=== PATIENT | male | born 1960 | race Caucasian/White ===

== ENCOUNTER 2018-08-28 08:53 | Day surgery (SDC) | payer MEDICARE ==
[~2018-08-28 08:53] MED LIST: Lactated Ringers 1,000 ML IV ONE; Lactated Ringers 1,000 ML IV SCH
[2018-08-28] MEDS ORDERED: Ketamine HCl 50 MG/ML IV ONE (08:54)
[2018-08-28] MEDS ORDERED: DIPRIVAN 200 MG/20 ML IV ONE (08:54)
--- NOTE | 2018-08-28 10:06 | HP ---
DATE OF SURGERY: 08/28/2018 HISTORY OF PRESENT ILLNESS: The patient is a 57 year-old with diarrhea three or four stools a day, some sharp right abdominal pain. He had a high ejection fraction of 85%. Family history of sister with history of colitis. With change in bowel habits and right upper quadrant pain, gallbladder ultrasound negative according to the patient, is in need of upper endoscopy to evaluate for gastritis, duodenitis, peptic ulcer disease as well as colonoscopy as he has a change in bowel habits. PAST MEDICAL HISTORY: Chronic obstructive pulmonary disease. Coronary stent in the past. PAST SURGICAL HISTORY: Coronary stents in the past. MEDICATIONS: Allopurinol, Albuterol, Cartia, bupropion, carvedilol, clopidogrel, famotidine, Invokana, isosorbide mononitrate, Lyrica, Nitro-Stat, Pyridium, Ventolin HFA, rosuvastatin, Symbicort. ALLERGIES: NIACIN. FAMILY HISTORY: Heart disease, cancer, diabetes, fibromyalgia, chronic obstructive pulmonary disease, sleep apnea. SOCIAL HISTORY: No smoking or alcohol abuse. REVIEW OF SYSTEMS: Twelve systems reviewed. Other systems negative or noncontributory as above and per preadmission questionnaire. PHYSICAL EXAMINATION: GENERAL: No acute distress. HEENT: Sclerae nonicteric. NECK: No JVD. CHEST: Equal excursion, nonlabored breathing. CVS: Regular rate and rhythm. ABDOMEN: Soft, some mild tenderness right upper quadrant. No peritoneal signs. EXTREMITIES: No significant edema. NEURO: Alert, oriented, moving extremities symmetrically. No gross motor deficits noted. IMPRESSION: History of some right upper quadrant pain. He is in need upper endoscopy to evaluate for gastritis, peptic ulcer disease, celiac disease, duodenitis or other etiology given the change in bowel habits. Also he is in need of colonoscopy to evaluate for colitis or other etiology, will proceed with EGD and colonoscopy as an outpatient. General risk of bleeding or infection, risk of bowel injury or perforation possibly requiring open procedure, risk of missed or nondiagnosis or inability to diagnose the etiology of his symptoms possibly requiring further work up and/or further studies or procedures. He understands and agrees to the planned procedure, will proceed with EGD and colonoscopy as an outpatient.
[2018-08-28 13:14] VITALS: O2SAT 99
[2018-08-28 13:16] VITALS: BP 110/74; PULSE 61
--- NOTE | 2018-08-28 14:57 | OP ---
SURGERY DATE/TIME: 08/28/2018 1100 PREOPERATIVE DIAGNOSES: 1) History of upper abdominal pain. 2) History of change in bowel movements, need for upper and lower endoscopy. POSTOPERATIVE DIAGNOSES: 1) Esophagitis, gastritis. 2) Ascending colon polyp. 3) Small raised lesion sigmoid colon. 4) Small internal and external hemorrhoids. 5) Fair bowel prep. PROCEDURES: 1) EGD with cold biopsy of the small bowel to evaluate for celiac sprue. 2) Cold biopsy of the antrum to evaluate for Helicobacter pylori. 3) Cold biopsy distal esophagus area of inflammation as well as more proximal distal esophagus to evaluate esophagitis. 4) Colonoscopy to terminal ileum. 5) Retrograde ileoscopy. 6) Random cold biopsies of the ileum to evaluate for microscopic ileitis. 7) Random cold biopsies colon to evaluate for microscopic colitis. 8) Hot snare polypectomy ascending colon polyp. 9) Hot biopsy removal small raised lesion versus hyperplastic lesion sigmoid colon. SURGEON: Dr. Timothy Timmons. ANESTHESIA: MAC. ESTIMATED BLOOD LOSS: Minimal. INDICATIONS: As noted above. Risks and benefits explained in detail and not limited to and consent obtained. DESCRIPTION OF PROCEDURE AND FINDINGS: The patient is taken to the operating room. MAC anesthesia introduced. After official time out and no disagreement with planned procedure, a bite block positioned. Video gastroscope easily passed down the esophagus through the patent pylorus to the junction of the second and third portion of the duodenum. Duodenum and duodenal bulb were grossly unremarkable. No signs of any obvious ulcers or inflammation but given his symptom complaint cold biopsy taken to evaluate for celiac sprue. Good hemostasis noted. The scope pulled back into the stomach and had some minimal to mild gastritis. Cold biopsy taken to evaluate for Helicobacter pylori. On retroflex the gastroesophageal junction snug against the stomach. There were no signs of any obvious ulcers, masses, polyps or any other mucosal lesions. The scope was straightened and pulled back. Gastroesophageal junction noted about 38 cm. There were some signs of some distal esophagitis, superficial erosions. Cold biopsy taken for further evaluation. There is no gross evidence of Thurston's. He did have some older looked like more healed in the area of erosion a little more proximal in the distal esophagus and these removed with cold biopsy as well for pathology. The remainder of the esophagus grossly unremarkable. No signs of any masses or other mucosal lesions other than the erosive esophagitis. The scope is withdrawn. The patient tolerated the procedure well. Attention turned to colonoscopy. Digital rectal exam did not reveal any rectal masses. He did have some small internal and external hemorrhoids. Video colonoscope inserted and passed up the tortuous sigmoid, descending, transverse and ascending colon. The scope was able to be passed around to the cecum and up through the terminal ileum. Retrograde ileoscopy performed which was grossly unremarkable but given his change in bowel habits and abdominal complaints felt he warranted biopsy for microscopic ileitis. Cold biopsy taken to this. The scope is then pulled back. Prep overall was fair. There were some areas of liquidy and semisolid stool limiting exam slightly for very tiny lesions but this was suction irrigated as clear as possible. The scope is slowly and carefully withdrawn. Some random cold biopsies obtained in the colon to evaluate for microscopic colitis. There was a small polyp in the distal ascending colon near the hepatic flexure about 3 to 4 mm in size removed with hot snare polypectomy with brief bursts of cautery. Good hemostasis was noted. The scope slowly and carefully withdrawn after some random biopsies had been taken to evaluate for microscopic colitis. There was no gross macroscopic colitis. There were no signs of any other large polyps, masses or obstructing lesions. He had a few diverticula. He had some small raised lesions in sigmoid colon versus hyperplastic lesion removed with hot biopsy forceps with brief bursts of cautery. Good hemostasis was noted. Otherwise he had some small internal and external hemorrhoids. The scope is withdrawn. The patient tolerated the procedure well. There were no immediate complications. Findings discussed with the family out in the waiting area. I will see him back in the office in a week or two to go over the results. If polyps are all benign he will likely need follow up colonoscopy in three years given the adenomatous appearing ascending colon polyp.
== END 2018-08-28 12:35 | disposition home or self-care (01) ==
LOC: SDC 08:53
PROVIDERS: ATTEND Surgery
DX: K20.9 Esophagitis, unspecified (principal); R19.7 Diarrhea, unspecified; K64.8 Other hemorrhoids; K63.5 Polyp of colon; D12.2 Benign neoplasm of ascending colon; K57.30 Diverticulosis of large intestine without perforation or abscess without bleeding; K29.70 Gastritis, unspecified, without bleeding; K64.4 Residual hemorrhoidal skin tags; R10.11 Right upper quadrant pain; R19.4 Change in bowel habit; J44.9 Chronic obstructive pulmonary disease, unspecified; Z79.899 Other long term (current) drug therapy; E11.9 Type 2 diabetes mellitus without complications
CPT/HCPCS: 88305; J2704

== ENCOUNTER 2018-11-27 12:01 | Day surgery (SDC) | payer MEDICARE ==
--- NOTE | 2018-11-27 10:27 | HP ---
DATE OF SURGERY: 11/27/2018 HISTORY OF PRESENT ILLNESS: The patient is a 58 year-old pain in the upper abdomen after he ate some frozen pizza. No loose stools. Endoscopic ultrasound showed cholelithiasis and wall thickening consistent with chronic cholecystitis as well as some mild pancreatitis. I felt he would benefit from cholecystectomy. PAST MEDICAL HISTORY: Heart disease. Lung disease. Diabetes. Fibromyalgia. Arthritis. Chronic obstructive pulmonary disease. Neuropathy. Hypertension. PAST SURGICAL HISTORY: Coronary stent placed in the past. MEDICATIONS: Albuterol inhaler, Allopurinol, bupropion, Cardia XT, carvedilol, clopidogrel, famotidine, Invokana, isosorbide mononitrate, Lyrica, Nitrostat PRN, Proventil HFA, rosuvastatin, Symbicort. ALLERGIES: NKDA. FAMILY HISTORY: Heart disease. Lung disease. Hypertension. Renal disease. SOCIAL HISTORY: No smoking or alcohol abuse. REVIEW OF SYSTEMS: Fourteen systems reviewed per admission assessment. No chest pain or palpitations other systems negative or noncontributory as above and per preadmission questionnaire. PHYSICAL EXAMINATION: GENERAL: No acute distress. HEENT: Sclerae nonicteric. NECK: No JVD. CHEST: Equal excursion, nonlabored breathing. CVS: Regular rate and rhythm. ABDOMEN: Soft, some mild tenderness right upper quadrant. No peritoneal signs. EXTREMITIES: No significant edema. NEURO: Alert, oriented, moving extremities symmetrically. No gross motor deficits noted. IMPRESSION: Symptomatic biliary colic, sludge versus tiny stones on endoscopic ultrasound with wall thickening, symptomatic biliary colic, chronic cholecystitis. I feel the patient will benefit from cholecystectomy. Shown the risk sheet and gallbladder pamphlet, explained the procedure in detail including bleeding or infection, risk of bowel injury or perforation possibly requiring converting to open procedure, risk of trocar injury or hernia, small risk of bile leak, bile duct injury, retained stone or sludge possibly requiring ERCP or open procedure, general risk of anesthesia, deep venous thrombosis, pulmonary embolism, pneumonia, perioperative risk of aches, pains, bloating, constipation and/or loose stools possibly even chronic in nature, possibility the procedure may not improve his symptoms. His symptoms may very well be related pancreatitis but not limited to. He understands all the above but not limited to. Dr. Nathan feels there may be sludge passing through and creating issues of pancreatitis so tomorrow will go ahead and proceed with cholecystectomy. He agreed to the plan, will proceed with laparoscopic cholecystectomy with possible open as an outpatient.
[~2018-11-27 12:01] MED LIST changes: +DIPRIVAN 200 MG/20 ML IV ONE; +Lactated Ringers 0 ML IV ONE; +MEFOXIN 2 GM PREMIX** 2 GM/50 ML ML IV ONE; +Quelicin Fliptop 200 MG/10 ML ONE; +SUBLIMAZE 100 MCG/2 ML ONE; +Sensorcaine 0.25% 10 ML ONE; +Zemuron 100 MG/10 ML ONE
[2018-11-27] MEDS ORDERED: TORAdol 30 mg Injection ONE (14:20)
[2018-11-27] MEDS ORDERED: Zofran 4 MG/2 ML VIAL ONE ×2 (14:20→15:26)
[2018-11-27] MEDS ORDERED: BRIDION 200MG/2ML IV ONE (14:20)
[2018-11-27] MEDS ORDERED: Decadron 4 MG INJ ONE (14:20)
[2018-11-27] MEDS ORDERED: SUBLIMAZE 100 MCG/2 ML ONE (15:11)
[2018-11-27] MEDS ORDERED: DILAUDID 2 MG INJECTION ONE (15:25)
--- NOTE | 2018-11-27 15:27 | OP ---
SURGERY DATE/TIME: 11/27/2018 1412 PREOPERATIVE DIAGNOSIS: Symptomatic sludge, chronic cholecystitis with some mild pancreatitis as well. POSTOPERATIVE DIAGNOSIS: Symptomatic sludge, chronic cholecystitis with some mild pancreatitis as well. PROCEDURE: Laparoscopic cholecystectomy. SURGEON: Dr. Timothy Timmons. ANESTHESIA: General. ESTIMATED BLOOD LOSS: Minimal. INDICATIONS: As listed per the history and physical but not limited to and consent obtained. DESCRIPTION OF PROCEDURE AND FINDINGS: The patient was taken to the operating room. General anesthesia induced. Abdomen prepped and draped in the usual sterile fashion. After official time out and no disagreement with planned procedure, a transverse incision made at the supraumbilical area. Fascia grasped and pulled upward. Veress needle inserted and tested with saline. Pneumoperitoneum accomplished insufflating opening pressure of 0-15. An 11 mm bladeless port and camera inserted without difficulty followed by two - 5 mm right upper quadrant ports and 5 mm epigastric port. The gallbladder had omental adhesions stuck over the liver, this was carefully freed. It had chronic inflammatory reaction. Slowly and carefully dissecting posterior, lateral to anterior fashion. Cystic duct and infundibular junction slowly and carefully well skeletonized until the critical view obtained both anteriorly and posteriorly. Once this was accomplished, the cystic duct clipped x3 and divided in usual fashion this is quite vascular requiring the main cystic artery to be clipped x3 and divided in usual fashion. Additional oozing side branches were clipped as necessary directly on the gallbladder wall. The gallbladder is slowly and carefully dissected free from its chronic inflammatory reaction on liver bed, slowly and carefully dissecting it free staying directly on the gallbladder wall. Just prior to releasing from final attachments to the anterior edge of the liver, the liver bed re-inspected. Clips noted in place cystic duct and cystic artery stumps. No signs of any active bleeding or bile leakage. It was felt there was no benefit in drain placement. Just prior to releasing from final attachments to anterior edge of the liver, one of the graspers tore a small pinhole in the gallbladder spilling a small amount of bile. There was no evidence of any stone or sludge. The gallbladder was decompressed. Gallbladder released from its final attachments to anterior edge of liver, placed in Pleatman sac and pulled free and passed off. The port was replaced. Copious amount of irrigation accomplished lateral to the liver and subhepatic space irrigating until clear. Liver bed re-inspected. Clips noted in place cystic duct and cystic artery stumps. There are no signs of any active bleeding or bile leakage. It is felt there is no benefit from drain placement. At this point fascia defect 10/11 site closed with puncture closure device with #1 Vicryl. Pneumoperitoneum decompressed. The wound was irrigated out. Skin incision closed with 4-0 Vicryl. Steri-Strips and sterile dressing applied. 0.25% Marcaine local injected along the skin incision fascial defect. The patient tolerated the procedure well. There were no immediate complications. Findings discussed with the family out in the waiting area. He was transferred to the recovery room in stable condition.
[2018-11-27] MEDS ORDERED: Nubain 10 MG/ML ONE (15:36)
[2018-11-27 16:23] VITALS: O2SAT 98
[2018-11-27 16:25] VITALS: BP 127/68; PULSE 61
== END 2018-11-27 16:42 | disposition home or self-care (01) ==
LOC: SDC 12:01
PROVIDERS: ATTEND Surgery
DX: K81.1 Chronic cholecystitis (principal); K85.90 Acute pancreatitis without necrosis or infection, unspecified; E11.9 Type 2 diabetes mellitus without complications; I10 Essential (primary) hypertension; J44.9 Chronic obstructive pulmonary disease, unspecified; Z79.899 Other long term (current) drug therapy
CPT/HCPCS: J0330; J0694; J1100; J1170; J1885; J2300; J2405; J2704; J3010

== ENCOUNTER 2019-12-19 05:55 | Emergency (ER) | payer MEDICARE ==
[2019-12-19] MEDS ORDERED: NITRO-BID 2% UD PACKETS TOP ONE (06:13)
[2019-12-19] MEDS ORDERED: BABY ASPIRIN 81 MG CHEW PO ONE (06:13)
[2019-12-19] MEDS ORDERED: MORPHINE SULFATE 2 MG INJ IV ONE ×2 (06:13→08:04)
--- NOTE | 2019-12-19 06:20 | ERPHSYRPT ---
<VAMSI PENNINGTON - Last Filed: 12/19/19 08:23> - History of Present Illness Time Seen by Provider: 12/19/19 06:10 Allergies/Adverse Reactions: niacin [From Niaspan Extended-Release] Allergy (Intermediate, Verified 12/19/19 06:07) Rash Home Medications: Sitagliptin Phosphate [Januvia] 100 mg PO DAILY 01/15/13 [History] Albuterol 2.5 mg/0.5 ml [PROVENTIL Solution 2.5 MG/0.5 ML] 2.5 mg IH Q4H 08/21/18 [History] Albuterol Sulfate [Ventolin Hfa] 2 puffs IH QID 08/21/18 [History] Allopurinol 300 mg [Zyloprim 300 mg] 300 mg PO DAILY 08/21/18 [History] Budesonide/Formoterol Fumarate [Symbicort 160-4.5 Mcg Inhaler] 2 puffs IH BID 08/21/18 [History] Canagliflozin [Invokana] 300 mg PO HS 08/21/18 [History] Diltiazem HCl [Cartia Xt] 120 mg PO DAILY 08/21/18 [History] Famotidine [Pepcid] 40 mg PO DAILY 08/21/18 [History] Isosorbide Mononitrate 60 mg [Imdur 60MG] 60 mg PO DAILY 08/21/18 [History] Nitroglycerin [Nitrostat] 0.4 mg SL Q5MIN PRN MR X 3 PRN 08/21/18 [History] Pregabalin [Lyrica 150Mg] 150 mg PO BID 08/21/18 [History] buPROPion HCL [Bupropion HCl Sr] 150 mg PO HS 08/21/18 [History] carvediloL [Carvedilol] 3.125 mg PO BID 08/21/18 [History] Rosuvastatin Calcium 20 mg PO HS 11/21/18 [History] Clopidogrel Bisulfate [Plavix] 75 mg PO DAILY 11/27/18 [History] - Progress Progress Note: 12/19/19 08:24 Medical decision making: I spoke with Dr. Bneavides, the patient's machine shop specialist. I reviewed the patient history, condition, laboratory data, EKG findings. He agrees the patient should be transferred for further cardiovascular evaluation and management. We will be transferring the patient to [facility] in [facility]. 12/19/19 08:[address] Colin, the emergency room physician at [facility]. I reviewed the patient history, condition, laboratory data, and EKG findings. He accepts the patient in transfer. Discussed with : Wil - Departure Departure Disposition: Transfer Clinical Impression: Chest pain, ACS (acute coronary syndrome), Abnormal EKG Condition: Stable Referrals: NATHANIEL MORGAN MD [Primary Care Provider] - <CHINTANNELI - Last Filed: 12/21/19 07:54> - History of Present Illness Historian: patient Exam Limitations: no limitations Patient Subjective Stated Complaint: pt c/o chest pain and sob Triage Nursing Assessment: pt c/o chest pain radiating to lt arm and back, states, "it's a heaviness and pressure feeling". Chest pain off and on for the last week, hx of 1 stent. Pt c/o sob as well, hx of COPD. Lungs clear, heart tones reg, abd soft with active bs x4 quad, nontender. Physician History: Patient is a 59-year-old male diabetic with a history of a cardiac stent placed approximately 4 years ago presents to our ED complaining of chest pain. Pain described as a pressure sensation at his left chest radiating into his back and left arm. Symptoms started approximately 1 week ago. He did not immediately come in because he was out of town. No associated nausea or vomiting. No shortness of breath. No diaphoresis. Symptoms are mild to moderate in intensity. No specific worsening or improving factors. Patient voices no other complaints at this time. Patient's machine shop specialist is Dr. Benavides at [facility]. Timing/Duration: week(s) Activities at Onset: none Quality: pressure Location: substernal Chest Pain Radiation: arm, back Severity of Pain-Max: moderate Severity of Pain-Current: mild Modifying Factors: Improves With: nothing Associated Symptoms: shortness of breath, No nausea, No vomiting, No palpitations, No cough, No hurts to breathe, No diaphoresis, No chills, No fever, No fatigue, No weakness, No swelling/lump in chest, No syncope, No rash, No headache, No dizziness, No edema, No back pain Prior Chest Pain/Cardiac Workup: cardiac cath, heart attack Nitro Today/Relief: no nitro taken today Aspirin Treatment Today: no aspirin today Hx Tetanus, Diphtheria Vaccination/Date Given: Yes Hx Influenza Vaccination/Date Given: No Hx Pneumococcal Vaccination/Date Given: Yes Immunizations Up to Date: Yes Travel Risk - International Travel Have you traveled outside of the country in past 3 weeks: No - Coronavirus Screening Are you exhibiting any of the following symptoms?: No Symptoms: Shortness of Breath, Headaches/Body Aches/Fatigue Close contact with a COVID-19 positive Pt in past 14-21 Days: No - Review of Systems Constitutional: No Symptoms, No Fever, No Chills Eyes: No Symptoms Ears, Nose, & Throat: No Symptoms Respiratory: No Symptoms, No Cough, No Dyspnea Cardiac: No Symptoms, No Chest Pain, No Edema, No Syncope Abdominal/Gastrointestinal: No Symptoms, No Abdominal Pain, No Nausea, No Vomiting, No Diarrhea Genitourinary Symptoms: No Symptoms, No Dysuria Musculoskeletal: No Symptoms, No Back Pain, No Neck Pain Skin: No Symptoms, No Rash Neurological: No Symptoms, No Dizziness, No Focal Weakness, No Sensory Changes Psychological: No Symptoms Endocrine: No Symptoms Hematologic/Lymphatic: No Symptoms Immunological/Allergic: No Symptoms All Other Systems: Reviewed and Negative - Past Medical History Pertinent Past Medical History: Yes Neurological History: No Pertinent History ENT History: No Pertinent History Cardiac History: Coronary Artery Disease, High Cholesterol, Hypertension, Other Respiratory History: COPD, Sleep Apnea Endocrine Medical History: Diabetes Type II Musculoskeletal History: Osteoarthritis, Rheumatoid Arthritis, Other GI Medical History: GERD History: Other Psycho-Social History: Anxiety, Depression Male Reproductive Disorders: No Pertinent History Other Medical History: Pt marked kidney problems but did not specify. Pt follows Dr. Mclaughlin. Pt reports sleep apnea, no cpap. Neck, spine, joint problems, scoliosis - Past Surgical History Past Surgical History: Yes Neuro Surgical History: No Pertinent History Cardiac: Cardiac Catheterization, Cardiac Stent Respiratory: No Pertinent History Gastrointestinal: Cholecystectomy Genitourinary: No Pertinent History Musculoskeletal: No Pertinent History Male Surgical History: No Pertinent History Other Surgical History: Hx of colonoscopies w/polypectomy - Social History Smoking Status: Former smoker How long have you smoked: 4 MONTHS Exposure to second hand smoke: No Drug Use: none Patient Lives Alone: No - Nursing Vital Signs Nursing Vital Signs: Initial Vital Signs Temperature 97.3 F 12/19/19 05:56 Pulse Rate 81 12/19/19 05:56 Respiratory Rate 18 12/19/19 05:56 Blood Pressure 164/103 12/19/19 05:56 O2 Sat by Pulse Oximetry 100 12/19/19 05:56 Pain Scale Pain Intensity 4 - Physical Exam General Appearance: no apparent distress, alert Eye Exam: PERRL/EOMI, eyes nml inspection Ears, Nose, Throat Exam: normal ENT inspection, moist mucous membranes Neck Exam: normal inspection, non-tender, supple, full range of motion Respiratory Exam: normal breath sounds, lungs clear, No respiratory distress Cardiovascular Exam: regular rate/rhythm, normal heart sounds Gastrointestinal/Abdomen Exam: soft, No tenderness, No mass Back Exam: normal inspection, No CVA tenderness, No vertebral tenderness Extremity Exam: normal inspection, normal range of motion Neurologic Exam: alert, oriented x 3, cooperative, normal mood/affect, sensation nml, No motor deficits Skin Exam: normal color, warm, dry Lymphatic Exam: No adenopathy SpO2 Interpretation: normal SpO2: 100 O2 Delivery: Room Air - Course Nursing assessment & vital signs reviewed: Yes EKG Interpreted by Me: RATE (64), Sinus Rhythm, NORMAL AXIS, NORMAL INTERVALS, Ischemic ST-T changes (anterolateral ST depression. ) Ordered Tests: Medication Summary Discontinued Medications Generic Name Dose Route Start Last Admin Trade Name Freq PRN Reason Stop Dose Admin Aspirin 324 mg 12/19/19 06:13 12/19/19 06:22 Baby Aspirin 81 Mg Chew PO 12/19/19 06:14 Not Given STAT ONE Morphine Sulfate 2 mg 12/19/19 06:13 12/19/19 06:24 Morphine Sulfate 2 Mg Inj IV 12/19/19 06:14 2 mg STAT ONE Administration Morphine Sulfate Confirm 12/19/19 06:23 Morphine Sulfate 2 Mg Inj Administered 12/19/19 06:24 Dose 2 mg .ROUTE .STK-MED ONE Morphine Sulfate 2 mg 12/19/19 08:04 12/19/19 08:47 Morphine Sulfate 2 Mg Inj IV 12/19/19 08:05 2 mg STAT ONE Administration Morphine Sulfate Confirm 12/19/19 08:46 Morphine Sulfate 2 Mg Inj Administered 12/19/19 08:47 Dose 2 mg .ROUTE .STK-MED ONE Nitroglycerin 1 gm 12/19/19 06:13 12/19/19 06:24 Nitro-Bid 2% Ud Packets TOP 12/19/19 06:14 1 gm STAT ONE Administration Nitroglycerin Confirm 12/19/19 06:23 Nitro-Bid 2% Ud Packets Administered 12/19/19 06:24 Dose 1 gm .ROUTE .STK-MED ONE Lab/Rad Data: Laboratory Result Diagrams 12/19/19 06:13 12/19/19 06:13 Laboratory Results 12/19/19 12/19/19 12/19/19 Range/Units 09:15 06:15 06:14 WBC (4.0-10.5) K/mm3 RBC (4.1-5.6) M/mm3 Hgb (12.5-18.0) gm/dl Hct (42-50) % MCV (78-100) fl MCH (26-32) pg MCHC (32-36) g/dl RDW (11.5-14.0) % Plt Count (150-450) K/mm3 MPV (7.5-11.0) fl Gran % (36.0-66.0) % Eos # (Auto) (0-0.5) Absolute Lymphs (auto) (1.0-4.6) Absolute Monos (auto) (0.0-1.3) Lymphocytes % (24.0-44.0) % Monocytes % (0.0-12.0) % Eosinophils % (0.00-5.0) % Basophils % (0.0-0.4) % Absolute Granulocytes (1.4-6.9) Basophils # (0-0.4) Sodium (137-145) mmol/L Potassium (3.5-5.1) mmol/L Chloride (98-107) mmol/L Carbon Dioxide (22-30) mmol/L Anion Gap (5-15) MEQ/L BUN (9-20) mg/dL Creatinine (0.66-1.25) mg/dL Estimated GFR ML/MIN Glucose (74-106) mg/dL Calcium (8.4-10.2) mg/dL Magnesium (1.6-2.3) mg/dL Total Bilirubin (0.2-1.3) mg/dL AST (17-59) U/L ALT (0-50) U/L Alkaline Phosphatase (38-126) U/L Troponin I < 0.012 < 0.012 (0.000-0.034) ng/mL NT-Pro-B Natriuret Pep (0-900) pg/mL Serum Total Protein (6.3-8.2) g/dL Albumin (3.5-5.0) g/dL Urine Color YELLOW (YELLOW) Urine Appearance CLEAR (CLEAR) Urine pH 6.0 (5-6) Ur Specific [place] 1.028 (1.005-1.025) Urine Protein NEGATIVE (Negative) Urine Ketones NEGATIVE (NEGATIVE) Urine Blood NEGATIVE (0-5) Babar/ul Urine Nitrite NEGATIVE (NEGATIVE) Urine Bilirubin NEGATIVE (NEGATIVE) Urine Urobilinogen NEGATIVE (0-1) mg/dL Ur Leukocyte Esterase NEGATIVE (NEGATIVE) Urine WBC (Auto) NONE (0-5) /HPF Urine RBC (Auto) NONE (0-2) /HPF U Epithel Cells (Auto) NONE (FEW) /HPF Urine Bacteria (Auto) NONE (NEGATIVE) /HPF Urine Culture Reflexed NO (NO) Urine Glucose >=500 (NEGATIVE) mg/dL 12/19/19 12/19/19 Range/Units 06:13 06:13 WBC 5.9 (4.0-10.5) K/mm3 RBC 5.52 (4.1-5.6) M/mm3 Hgb 16.3 (12.5-18.0) gm/dl Hct 48.2 (42-50) % MCV 87.3 (78-100) fl MCH 29.5 (26-32) pg MCHC 33.8 (32-36) g/dl RDW 13.6 (11.5-14.0) % Plt Count 140 L (150-450) K/mm3 MPV 13.1 H (7.5-11.0) fl Gran % 57.3 (36.0-66.0) % Eos # (Auto) 0.11 (0-0.5) Absolute Lymphs (auto) 1.92 (1.0-4.6) Absolute Monos (auto) 0.44 (0.0-1.3) Lymphocytes % 32.8 (24.0-44.0) % Monocytes % 7.5 (0.0-12.0) % Eosinophils % 1.9 (0.00-5.0) % Basophils % 0.5 (0.0-0.4) % Absolute Granulocytes 3.36 (1.4-6.9) Basophils # 0.03 (0-0.4) Sodium 138 (137-145) mmol/L Potassium 3.6 (3.5-5.1) mmol/L Chloride 101 (98-107) mmol/L Carbon Dioxide 28 (22-30) mmol/L Anion Gap 12.7 (5-15) MEQ/L BUN 14 (9-20) mg/dL Creatinine 1.18 (0.66-1.25) mg/dL Estimated GFR > 60.0 ML/MIN Glucose 201 H (74-106) mg/dL Calcium 10.0 (8.4-10.2) mg/dL Magnesium 2.3 (1.6-2.3) mg/dL Total Bilirubin 2.10 H (0.2-1.3) mg/dL AST 27 (17-59) U/L ALT 23 (0-50) U/L Alkaline Phosphatase 101 (38-126) U/L Troponin I (0.000-0.034) ng/mL NT-Pro-B Natriuret Pep 57.7 (0-900) pg/mL Serum Total Protein 8.0 (6.3-8.2) g/dL Albumin 4.9 (3.5-5.0) g/dL Urine Color (YELLOW) Urine Appearance (CLEAR) Urine pH (5-6) Ur Specific [place] (1.005-1.025) Urine Protein (Negative) Urine Ketones (NEGATIVE) Urine Blood (0-5) Babar/ul Urine Nitrite (NEGATIVE) Urine Bilirubin (NEGATIVE) Urine Urobilinogen (0-1) mg/dL Ur Leukocyte Esterase (NEGATIVE) Urine WBC (Auto) (0-5) /HPF Urine RBC (Auto) (0-2) /HPF U Epithel Cells (Auto) (FEW) /HPF Urine Bacteria (Auto) (NEGATIVE) /HPF Urine Culture Reflexed (NO) Urine Glucose (NEGATIVE) mg/dL - Progress Progress: improved Air Movement: good Progress Note: 12/19/19 06:[address] Pennington at 7 AM. Labs and imaging site pending. Dr. Pennington to make final disposition. Blood Culture(s) Obtained: No Antibiotics given: No Counseled pt/family regarding: lab results, diagnosis, need for follow-up, rad results - Departure Critical Care Time: No
[2019-12-19] MEDS ORDERED: NITRO-BID 2% UD PACKETS ONE (06:23)
[2019-12-19] MEDS ORDERED: MORPHINE SULFATE 2 MG INJ ONE ×2 (06:23→08:46)
[2019-12-19 06:27] LABS: Absolute Neutrophil Ct (ANC) 3.36 (1.4-6.9); BASOPHIL % 0.5 % (0.0-0.4); Basophil (Absolute #) 0.03 (0-0.4); Eosinophil % 1.9 % (0.00-5.0); Eosinophil (Absolute #) 0.11 (0-0.5); Hematocrit 48.2 % (42-50); Hemoglobin 16.3 gm/dl (12.5-18.0); Lymphocyte (Absolute #) 1.92 (1.0-4.6); Lymphocytes % 32.8 % (24.0-44.0); Mean Cell Volume 87.3 fl (78-100); Mean Corpuscular Hemoglobin 29.5 pg (26-32); Mean Corpuscular Hgb Concent. 33.8 g/dl (32-36); Mean Platelet Volume 13.1 fl (7.5-11.0); Monocyte (Absolute #) 0.44 (0.0-1.3); Monocytes % 7.5 % (0.0-12.0); Neutrophil % 57.3 % (36.0-66.0); Platelet Count 140 K/mm3 (150-450); Red Blood Count 5.52 M/mm3 (4.1-5.6); Red Cell Distribution Width 13.6 % (11.5-14.0); White Blood Count 5.9 K/mm3 (4.0-10.5)
[2019-12-19 06:44] LABS: Appearance CLEAR (CLEAR); Bilirubin NEGATIVE (NEGATIVE); Blood NEGATIVE Ery/ul (0-5); Glucose >=500 mg/dL (NEGATIVE); Ketones NEGATIVE (NEGATIVE); Leukocyte Esterase NEGATIVE (NEGATIVE); Nitrite NEGATIVE (NEGATIVE); Protein,Urine Dip NEGATIVE (Negative); Specific Gravity 1.028 (1.005-1.025); Urobilinogen NEGATIVE mg/dL (0-1)
[2019-12-19 07:05] LABS: ALBUMIN 4.9 g/dL (3.5-5.0); ALKALINE PHOSPHATASE 101 U/L (38-126); ANION GAP 12.7 MEQ/L (5-15); BLOOD UREA NITROGEN 14 mg/dL (9-20); CHLORIDE 101 mmol/L (98-107); Carbon Dioxide 28 mmol/L (22-30); Creatinine 1 1.18 mg/dL (0.66-1.25); EST GLOMERULAR FILTRATION RATE > 60.0 ML/MIN; Glucose 201 mg/dL (74-106); MAGNESIUM 2.3 mg/dL (1.6-2.3); NT PRO BNP 57.7 pg/mL (0-900); Potassium 3.6 mmol/L (3.5-5.1); SGOT/AST 27 U/L (17-59); SGPT/ALT 23 U/L (0-50); SODIUM 138 mmol/L (137-145)
--- NOTE | 2019-12-19 09:35 | XRAY ---
Indication: Chest pain. Comparison: December 29, 2011. Portable apical lordotic chest again demonstrates normal heart and lungs. Bony thorax intact.
[2019-12-19 09:47] VITALS: BP 126/74; PULSE 59
[2019-12-21 07:54] VITALS: O2SAT 100
== END 2019-12-19 09:55 | disposition short-term general hospital (02) ==
LOC: ED 05:55
DX: R07.9 Chest pain, unspecified (principal); I24.9 Acute ischemic heart disease, unspecified; R94.31 Abnormal electrocardiogram [ECG] [EKG]
CPT/HCPCS: 36000; 36415; 71045; 80053; 81001; 83735; 83880; 84484; 85025; 93005; 93041; 94760; 96374; 96376; 99284; J2270; A9270-GY

== ENCOUNTER 2021-12-07 08:33 | Day surgery (SDC) | payer MEDICARE ==
--- NOTE | 2021-12-07 08:13 | HP ---
DATE OF SURGERY: 12/07/2021 HISTORY OF PRESENT ILLNESS: The patient is a 61-year-old with epigastric burning and some reflux, history of polyps in the past. He is in need of follow up colonoscopy as well as upper endoscopy, some sharp pain right lower quadrant area at times. No bloody stools. Family history of heart disease, not sure whether his father had any colon cancer in the past. PAST MEDICAL HISTORY: Chronic obstructive pulmonary disease, heart disease, lung disease, diabetes. PAST SURGICAL HISTORY: Coronary stents. Cholecystectomy in the past. MEDICATIONS: Vascepa, Carvedilol, rosuvastatin for some hyperlipidemia, isosorbide mononitrate, clopidogrel, tramadol, vitamin D3, Albuterol, Symbicort, Invokana, Januvia, Ozempic, Lyrica, famotidine. ALLERGIES: NIACIN. FAMILY HISTORY: Negative in regards to this problem. SOCIAL HISTORY: No alcohol abuse. REVIEW OF SYSTEMS: Fourteen systems reviewed. Negative or noncontributory as above and per preadmission questionnaire. PHYSICAL EXAMINATION: GENERAL: No acute distress. HEENT: Sclerae nonicteric. NECK: No JVD. CHEST: Equal excursion, nonlabored breathing. CVS: Regular rate and rhythm. ABDOMEN: Soft. No peritoneal signs. EXTREMITIES: No significant edema. NEURO: Alert, oriented, moving extremities symmetrically. No gross motor deficits noted. RECTAL: Deferred timed to endoscopy exam. PSYCH: Appropriate mood and affect. IMPRESSION: Epigastric pain, burning and reflux. The patient is in need of upper endoscopy possible biopsy. In addition with history of polyps, he is in need of follow up colonoscopy. Risks and benefits explained in detail including but not limited to bleeding or infection, risk of bowel injury or perforation possibly requiring open procedure, risk of missed or nondiagnosis or incomplete exam possibly requiring barium enema, other studies or procedures. General risk of anesthesia or sedation, risk of bowel prep but not limited to. Consent obtained, will proceed with EGD and colonoscopy as an outpatient under MAC anesthesia.
[2021-12-07] MEDS ORDERED: Lactated Ringers 1,000 ML IV ONE (09:11)
[2021-12-07] MEDS ORDERED: Lactated Ringers 1,000 ML IV SCH (09:30)
[2021-12-07] MEDS ORDERED: DIPRIVAN 200 MG/20 ML IV ONE ×2 (10:45→10:46)
[2021-12-07] MEDS ORDERED: Xylocaine-Mpf 2% 5 Ml Vial ONE (10:45)
[2021-12-07] MEDS ORDERED: Versed 2 MG/2 ML Injection ONE (10:46)
[2021-12-07 11:54] VITALS: BP 110/71; PULSE 61; O2SAT 98
--- NOTE | 2021-12-07 15:12 | OP ---
SURGERY DATE/TIME: 12/07/2021 1046 PREOPERATIVE DIAGNOSES: 1) History of polyp in need for screening colonoscopy. 2) History of increased epigastric pain and burning, need for upper endoscopy. 3) History of reflux. 4) ASA Class 3. POSTOPERATIVE DIAGNOSES: 1) Mild erosive gastritis. 2) Erosive distal esophagitis with thin erosions. 3) Two small colon polyps sigmoid colon and rectum. 4) Mild diverticulosis. PROCEDURES: 1) EGD with cold biopsy of antrum. 2) Cold biopsy distal esophagus to evaluate for distal esophagitis. 3) Cold biopsy mid esophagus to evaluate for eosinophilic esophagitis. 4) Colonoscopy to cecum. 5) Hot biopsy polypectomy small sigmoid colon polyp. 6) Hot biopsy polypectomy small rectal polyp. 7) Withdrawal time was approximately 8 minutes and 30 seconds on colonoscopy. SURGEON: Dr. Timothy Timmons. ANESTHESIA: MAC. ESTIMATED BLOOD LOSS: Minimal. INDICATIONS: As noted above. Risks and benefits explained in detail and not limited to and consent obtained. DESCRIPTION OF PROCEDURE AND FINDINGS: The patient is taken to the endoscopy room. MAC anesthesia induced. After official time out and no disagreement with planned procedure, bite block positioned. Video gastroscope easily passed down the esophagus to the patent pylorus to the third portion of the duodenum. Third, second and first portions of duodenum grossly unremarkable. Back in the stomach he did have some petechial hemorrhages, signs of some mild erosive gastritis. Cold biopsy taken to evaluate for Helicobacter pylori. There was no ulcer. On retroflex the gastroesophageal junction snug against the scope. Scope pulled back. Gastroesophageal junction noted at about 40 cm. Z-line was reasonably clear. There was however a couple of thin erosions appeared to be partial healing, signs of erosive distal esophagitis. Cold biopsy taken for path. Good hemostasis noted. Random cold biopsy taken mid esophagus to evaluate for eosinophilic esophagitis to evaluate for eosinophilic esophagitis. The patient tolerated the procedure well. There were no immediate complications. Attention is then turned to colonoscopy. Digital rectal exam did not reveal any rectal masses. Video colonoscope inserted and passed up the tortuous sigmoid, descending, transverse, ascending colon around to the cecum. Appendiceal orifice and valve well visualized and photo documented. Prep overall is fair. ASA Class III. Withdrawal was approximately 8 minutes and 30 seconds. The scope is carefully withdrawn suctioning liquidy stool as needed. He had a few small diverticula in the left colon. There were no signs of any large polyps, masses or obstructing lesions. There was a small polyp in the sigmoid colon removed with hot biopsy forceps with brief bursts of cautery in two pieces. Otherwise a small polyp in the rectum removed with hot biopsy polypectomy. Good hemostasis was noted. The patient tolerated the procedure well. Findings discussed with the family over the phone. I will see him back in the office next week.
== END 2021-12-07 12:03 | disposition home or self-care (01) ==
LOC: SDC 08:33
PROVIDERS: ATTEND Surgery
DX: Z12.11 Encounter for screening for malignant neoplasm of colon (principal); Z87.19 Personal history of other diseases of the digestive system; K29.70 Gastritis, unspecified, without bleeding; K20.90 Esophagitis, unspecified without bleeding; K63.5 Polyp of colon; K62.1 Rectal polyp; K57.30 Diverticulosis of large intestine without perforation or abscess without bleeding
CPT/HCPCS: J2250; J2704

== ENCOUNTER 2023-06-23 19:45 | Emergency (ER) | payer MEDICARE ==
--- NOTE | 2023-06-23 20:25 | ERPHSYRPT ---
- History of Present Illness Time Seen by Provider: 06/23/23 19:51 Historian: patient Exam Limitations: no limitations Physician History: Since 7 hours ago pt has had intermittent sharp stabbing RLQ abdominal pain with episodes lasting up to 5 seconds and pain up to 10/10 in severity; LBM was yesterday & wnl. Allergies/Adverse Reactions: niacin [From Niaspan Extended-Release] Allergy (Intermediate, Verified 12/07/21 08:46) Rash Home Medications: Sitagliptin Phosphate [Januvia] 100 mg PO DAILY 01/15/13 [History] Albuterol 2.5 mg/0.5 ml [PROVENTIL Solution 2.5 MG/0.5 ML] 2.5 mg IH Q6H 08/21/18 [History] Albuterol Sulfate [Ventolin Hfa] 2 puffs IH QID 08/21/18 [History] Allopurinol 300 mg [Zyloprim 300 mg] 400 mg PO HS 08/21/18 [History] Budesonide/Formoterol Fumarate [Symbicort 160-4.5 Mcg Inhaler] 2 puffs IH BID 08/21/18 [History] Canagliflozin [Invokana] 300 mg PO HS 08/21/18 [History] Diltiazem HCl [Cartia Xt] 120 mg PO DAILY 08/21/18 [History] Isosorbide Mononitrate 60 mg [Imdur 60MG] 60 mg PO DAILY 08/21/18 [History] Pregabalin [Lyrica 150Mg] 150 mg PO BID 08/21/18 [History] carvediloL [Carvedilol] 3.125 mg PO HS 08/21/18 [History] Rosuvastatin Calcium 20 mg PO HS 11/21/18 [History] Ergocalciferol (Vitamin D2) [Vitamin D2] 1,250 mcg PO UD 11/25/21 [History] Icosapent Ethyl [Vascepa] 2 gm PO BID 11/25/21 [History] Semaglutide [Ozempic] 0.25 mg SQ DAILY 11/25/21 [History] lisinopriL [Lisinopril] 2.5 mg PO DAILY 12/07/21 [History] Clopidogrel Bisulfate [Plavix] 75 mg PO DAILY 06/23/23 [History] Pantoprazole Sodium 40 mg PO DAILY 06/23/23 [History] Hx Tetanus, Diphtheria Vaccination/Date Given: Yes Hx Influenza Vaccination/Date Given: No Hx Pneumococcal Vaccination/Date Given: Yes - Review of Systems Constitutional: No Fever Ears, Nose, & Throat: No Ear Pain, No Throat Pain Respiratory: No Cough, No Dyspnea Cardiac: No Chest Pain Abdominal/Gastrointestinal: Abdominal Pain, No Vomiting, No Diarrhea Skin: No Rash Neurological: No Headache - Past Medical History Pertinent Past Medical History: Yes Neurological History: No Pertinent History ENT History: No Pertinent History Cardiac History: Arrhythmia, Coronary Artery Disease, High Cholesterol, Hypertension, Other Respiratory History: COPD, Sleep Apnea Endocrine Medical History: Diabetes Type II Musculoskeletal History: Osteoarthritis, Rheumatoid Arthritis, Other GI Medical History: GERD History: Other Psycho-Social History: Anxiety, Depression Male Reproductive Disorders: No Pertinent History Other Medical History: scoliosis - Past Surgical History Past Surgical History: Yes Neuro Surgical History: No Pertinent History Cardiac: Cardiac Catheterization, Cardiac Stent Respiratory: No Pertinent History Gastrointestinal: Cholecystectomy Genitourinary: No Pertinent History Musculoskeletal: No Pertinent History Male Surgical History: No Pertinent History Other Surgical History: Hx of colonoscopies w/polypectomy - Social History Smoking Status: Former smoker How long have you smoked: 4 MONTHS Exposure to second hand smoke: No Drug Use: none Patient Lives Alone: No - Nursing Vital Signs Nursing Vital Signs: Initial Vital Signs Temperature 96.6 F 06/23/23 19:55 Pulse Rate 81 06/23/23 19:55 Respiratory Rate 18 06/23/23 19:55 Blood Pressure 152/92 06/23/23 19:55 O2 Sat by Pulse Oximetry 97 06/23/23 19:55 Pain Scale Pain Intensity 7 - Physical Exam General Appearance: alert Eye Exam: PERRL/EOMI Ears, Nose, Throat Exam: TMs normal, pharynx normal Neck Exam: normal inspection Respiratory Exam: normal breath sounds, airway intact Cardiovascular Exam: normal heart sounds Gastrointestinal/Abdomen Exam: normal bowel sounds, tenderness (mild RLQ) Neurologic Exam: alert, cooperative Skin Exam: warm, dry - CT Exams Abdomen/Pelvis CT Interpretation: Tele-radiologist Report (No comps. Stomach markedly distended w/food/fluid, but none in small bowel. R/O gastroiparesis. Appendix not seen. Moderate diffuse fecal stasis. Remaining A/P negative.) Ordered Tests: Active Orders 24 hr Category Date Time Status IV Insertion STAT Care 06/23/23 20:23 Active ABDOMEN AND PELVIS W/0 CONTRAS [CT] Stat Exams 06/23/23 20:44 Taken AMYLASE Stat Lab 06/23/23 20:20 Completed CBC W DIFF Stat Lab 06/23/23 20:20 Completed CMP Stat Lab 06/23/23 20:20 Completed LIPASE Stat Lab 06/23/23 20:20 Completed MAGNESIUM Stat Lab 06/23/23 20:20 Completed UA W/RFX UR CULTURE Stat Lab 06/23/23 21:18 Completed Medication Summary Generic Name Dose Route Start Last Admin Trade Name Freq PRN Reason Stop Dose Admin Sodium Chloride 1,000 mls @ 100 mls/hr 06/23/23 20:30 06/23/23 20:43 Sodium Chloride 0.9% 1000 Ml IV 07/23/23 20:29 100 mls/hr .Q10H ALEJANDRO Administration Discontinued Medications Generic Name Dose Route Start Last Admin Trade Name Freq PRN Reason Stop Dose Admin Morphine Sulfate 2 mg 06/23/23 20:23 06/23/23 20:48 Morphine Sulfate 2 Mg/Ml Inj IV 06/23/23 20:24 2 mg STAT ONE Administration Morphine Sulfate Confirm 06/23/23 20:41 Morphine Sulfate 2 Mg/Ml Inj Administered 06/23/23 20:42 Dose 2 mg .ROUTE .STK-MED ONE Ondansetron HCl 4 mg 06/23/23 20:23 06/23/23 20:45 Ondansetron Hcl 4 Mg/2 Ml Vial IV 06/23/23 20:24 4 mg STAT ONE Administration Ondansetron HCl Confirm 06/23/23 20:41 Ondansetron Hcl 4 Mg/2 Ml Vial Administered 06/23/23 20:42 Dose 4 mg .ROUTE .STK-MED ONE Lab/Rad Data: Laboratory Result Diagrams 06/23/23 20:20 06/23/23 20:20 Laboratory Results 06/23/23 06/23/23 06/23/23 Range/Units 21:18 20:20 20:20 WBC (4.0-10.5) x10^3/uL RBC (4.1-5.6) x10^6/uL Hgb (12.5-18.0) g/dL Hct (42-50) % MCV (78-100) fL MCH (26-32) pg MCHC (32-36) g/dL RDW (11.5-14.0) % Plt Count (150-450) x10^3/uL MPV (7.5-11.0) fL Gran % (36.0-66.0) % Immature Gran % (Auto) (0.00-0.4) % Nucleat RBC Rel Count (0.00-0.1) % Eos # (Auto) (0-0.5) x10^3/uL Immature Gran # (Auto) (0.00-0.03) x10^3u/L Absolute Lymphs (auto) (1.0-4.6) x10^3/uL Absolute Monos (auto) (0.0-1.3) x10^3/uL Absolute Nucleated RBC (0.00-0.01) x10^3u/L Lymphocytes % (24.0-44.0) % Monocytes % (0.0-12.0) % Eosinophils % (0.00-5.0) % Basophils % (0.0-0.4) % Absolute Granulocytes (1.4-6.9) x10^3/uL Basophils # (0-0.4) x10^3/uL Sodium 139 (137-145) mmol/L Potassium 3.8 (3.5-5.1) mmol/L Chloride 102 (98-107) mmol/L Carbon Dioxide 27 (22-30) mmol/L Anion Gap 14.2 (5-15) MEQ/L BUN 26 H (9-20) mg/dL Creatinine 0.96 (0.66-1.25) mg/dL Estimated GFR 90.5 ML/MIN Glucose 157 H (74-106) mg/dL Calcium 9.9 (8.4-10.2) mg/dL Magnesium 2.0 (1.6-2.3) mg/dL Total Bilirubin 1.50 H (0.2-1.3) mg/dL AST 28 (17-59) U/L ALT 19 (0-50) U/L Alkaline Phosphatase 68 (38-126) U/L Serum Total Protein 7.7 (6.3-8.2) g/dL Albumin 4.9 (3.5-5.0) g/dL Amylase 86 (30-110) U/L Lipase 174 (23-300) U/L Urine Color Yellow (Yellow) Urine Appearance Clear (Clear) Urine pH 6.0 (4.6-8.0) Ur Specific [place] 1.025 (1.005-1.030) Urine Protein Negative (Negative) Urine Glucose (UA) >=1000 A (Negative) mg/dL Urine Ketones Negative (Negative) Urine Blood Negative (Negative) Urine Nitrite Negative (Negative) Urine Bilirubin Negative (Negative) Urine Urobilinogen 1.0 A (0.2) mg/dL Ur Leukocyte Esterase Negative (Negative) U Hyaline Cast (Auto) NONE SEEN (0-2) /LPF Urine Microscopic RBC 0-2 (0-5) /HPF Urine Microscopic WBC 0-2 (0-5) /HPF Ur Epithelial Cells None Seen (None Seen) /HPF Urine Bacteria None Seen (None Seen) /HPF Urine Culture Reflexed NO (NO) 06/23/23 Range/Units 20:20 WBC 4.4 (4.0-10.5) x10^3/uL RBC 4.90 (4.1-5.6) x10^6/uL Hgb 14.5 (12.5-18.0) g/dL Hct 42.6 (42-50) % MCV 86.9 (78-100) fL MCH 29.6 (26-32) pg MCHC 34.0 (32-36) g/dL RDW 12.5 (11.5-14.0) % Plt Count 131 L (150-450) x10^3/uL MPV 12.7 H (7.5-11.0) fL Gran % 52.5 (36.0-66.0) % Immature Gran % (Auto) 0.2 (0.00-0.4) % Nucleat RBC Rel Count 0.0 (0.00-0.1) % Eos # (Auto) 0.07 (0-0.5) x10^3/uL Immature Gran # (Auto) 0.01 (0.00-0.03) x10^3u/L Absolute Lymphs (auto) 1.59 (1.0-4.6) x10^3/uL Absolute Monos (auto) 0.40 (0.0-1.3) x10^3/uL Absolute Nucleated RBC 0.00 (0.00-0.01) x10^3u/L Lymphocytes % 35.8 (24.0-44.0) % Monocytes % 9.0 (0.0-12.0) % Eosinophils % 1.6 (0.00-5.0) % Basophils % 0.9 (0.0-0.4) % Absolute Granulocytes 2.33 (1.4-6.9) x10^3/uL Basophils # 0.04 (0-0.4) x10^3/uL Sodium (137-145) mmol/L Potassium (3.5-5.1) mmol/L Chloride (98-107) mmol/L Carbon Dioxide (22-30) mmol/L Anion Gap (5-15) MEQ/L BUN (9-20) mg/dL Creatinine (0.66-1.25) mg/dL Estimated GFR ML/MIN Glucose (74-106) mg/dL Calcium (8.4-10.2) mg/dL Magnesium (1.6-2.3) mg/dL Total Bilirubin (0.2-1.3) mg/dL AST (17-59) U/L ALT (0-50) U/L Alkaline Phosphatase (38-126) U/L Serum Total Protein (6.3-8.2) g/dL Albumin (3.5-5.0) g/dL Amylase (30-110) U/L Lipase (23-300) U/L Urine Color (Yellow) Urine Appearance (Clear) Urine pH (4.6-8.0) Ur Specific [place] (1.005-1.030) Urine Protein (Negative) Urine Glucose (UA) (Negative) mg/dL Urine Ketones (Negative) Urine Blood (Negative) Urine Nitrite (Negative) Urine Bilirubin (Negative) Urine Urobilinogen (0.2) mg/dL Ur Leukocyte Esterase (Negative) U Hyaline Cast (Auto) (0-2) /LPF Urine Microscopic RBC (0-5) /HPF Urine Microscopic WBC (0-5) /HPF Ur Epithelial Cells (None Seen) /HPF Urine Bacteria (None Seen) /HPF Urine Culture Reflexed (NO) - Progress Progress: unchanged Counseled pt/family regarding: lab results, diagnosis, need for follow-up, rad results Medical Desision Making - Diagnostic Testing Diagnostic test were ordered, analyzed, and reviewed by me: Yes Radiological Interpretation: Teleradiologist Report - Departure Departure Disposition: Home Clinical Impression: Abdominal pain Condition: Stable Critical Care Time: No Referrals: NATHANIEL MORGAN MD [Primary Care Provider] - Follow up/PCP as directed Instructions: Severe Abdominal Pain, Adult (DC) Additional Instructions: Follow up with private doctor tomorrow. Forms: Work/School Release Form
[2023-06-23 20:31] LABS: Absolute Neutrophil Ct (ANC) 2.33 x10^3/uL (1.4-6.9); BASOPHIL % 0.9 % (0.0-0.4); Basophil (Absolute #) 0.04 x10^3/uL (0-0.4); Eosinophil % 1.6 % (0.00-5.0); Eosinophil (Absolute #) 0.07 x10^3/uL (0-0.5); Hematocrit 42.6 % (42-50); Hemoglobin 14.5 g/dL (12.5-18.0); IMMATURE GRAN # 0.01 x10^3u/L (0.00-0.03); IMMATURE GRAN % 0.2 % (0.00-0.4); Lymphocyte (Absolute #) 1.59 x10^3/uL (1.0-4.6); Lymphocytes % 35.8 % (24.0-44.0); Mean Cell Volume 86.9 fL (78-100); Mean Corpuscular Hemoglobin 29.6 pg (26-32); Mean Platelet Volume 12.7 fL (7.5-11.0); Neutrophil % 52.5 % (36.0-66.0); Platelet Count 131 x10^3/uL (150-450); Red Cell Distribution Width 12.5 % (11.5-14.0); White Blood Count 4.4 x10^3/uL (4.0-10.5)
[2023-06-23 20:37] VITALS: TEMP 96.6
[2023-06-23] MEDS ORDERED: Sodium Chloride 0.9% 1000 ML 1,000 ML ONE (20:41)
[2023-06-23] MEDS ORDERED: MORPHINE SULFATE 2 MG INJ ONE (20:41)
[2023-06-23] MEDS ORDERED: Zofran 4 MG/2 ML VIAL ONE (20:41)
[2023-06-23] MEDS: Sodium Chloride 0.9% 1000 ML 1,000 ML IV SCH (20:43)
[2023-06-23] MEDS: Zofran 4 MG/2 ML VIAL IV ONE (20:45)
[2023-06-23] MEDS: MORPHINE SULFATE 2 MG INJ IV ONE (20:48)
[2023-06-23 20:50] LABS: ALBUMIN 4.9 g/dL (3.5-5.0); ANION GAP 14.2 MEQ/L (5-15); BILIRUBIN,TOTAL 1.5 mg/dL (0.2-1.3); Calcium 9.9 mg/dL (8.4-10.2); Creatinine 1 0.96 mg/dL (0.66-1.25); EST GLOMERULAR FILTRATION RATE 90.5 ML/MIN; Potassium 3.8 mmol/L (3.5-5.1); Total Protein 7.7 g/dL (6.3-8.2)
[2023-06-23 21:31] LABS: Appearance Clear (Clear); Bacteria None Seen /HPF (None Seen); Bilirubin Negative (Negative); Blood Negative (Negative); Epithelial Cells None Seen /HPF (None Seen); Glucose, Urine >=1000 mg/dL (Negative); Hyaline Casts NONE SEEN /LPF (0-2); Ketones Negative (Negative); Leukocyte Esterase Negative (Negative); Nitrite Negative (Negative); Protein,Urine Dip Negative (Negative); RBC 0-2 /HPF (0-5); Specific Gravity 1.025 (1.005-1.030); WBC 0-2 /HPF (0-5)
[2023-06-23 21:32] LABS: ADD URINE CULTURE? NO (NO)
[2023-06-23 22:02] VITALS: RESP 16
[2023-06-23] MEDS ORDERED: MILK OF MAGNESIA 30 ML ONE (22:32)
[2023-06-23] MEDS ORDERED: DULCOLAX 5 MG PO ONE (22:40)
[2023-06-23 22:41] VITALS: BP 109/67; PULSE 68; O2SAT 96
[2023-06-23] MEDS: DULCOLAX 5 MG PO PRN (22:42)
[2023-06-23] MEDS: MILK OF MAGNESIA 30 ML PO ONE (22:42)
--- NOTE | 2023-06-24 08:46 | XRAY ---
Indication: Pain. Multiple contiguous axial images obtained through the abdomen and pelvis without contrast. Comparison: None Lung bases demonstrates minimal dependent atelectasis. No infiltrate or effusion. Heart is not enlarged. Stomach is markedly distended with food/fluid with little to none in the small bowel loops. Gastroparesis is of primary concern. Noncontrasted stomach and bowel loops appear nonobstructed. Appendix not visualized. There is moderate diffuse scattered colonic fecal debris throughout including rectum. Previous cholecystectomy. Spleen is large measuring 13.8 cm. No free fluid/air. Remaining liver, [place], spleen, adrenal glands, kidneys, ureters, and bladder are unremarkable for noncontrast exam. Mild scattered aortoiliac calcifications without AAA. Osseous structures intact with minimal degenerative changes throughout the spine. No ventral or inguinal hernias. Impression: 1. Food/fluid distended stomach. Rule out gastroparesis. 2. Moderate diffuse fecal stasis. 3. Incidental splenomegaly, arteriosclerotic disease, and degenerative spondylosis.
== END 2023-06-23 23:05 | disposition home or self-care (01) ==
LOC: ED 19:45
DX: R10.31 Right lower quadrant pain (principal); E78.5 Hyperlipidemia, unspecified; I10 Essential (primary) hypertension; E11.9 Type 2 diabetes mellitus without complications; Z79.84 Long term (current) use of oral hypoglycemic drugs; Z79.85 Long-term (current) use of injectable non-insulin antidiabetic drugs; Z79.02 Long term (current) use of antithrombotics/antiplatelets; Z79.899 Other long term (current) drug therapy
CPT/HCPCS: 36000; 36415; 74176; 80053; 81001; 82150; 83690; 83735; 85025; 96360; 96374; 96375; 99284; J2270; J2405; A9270-GY

== ENCOUNTER 2023-10-17 12:31 | Day surgery (SDC) | payer MEDICARE ==
--- NOTE | 2023-10-17 08:24 | HP ---
HISTORY AND PHYSICAL HISTORY OF PRESENT ILLNESS: A 63-year-old with epigastric pain, increased reflux. Had CT scan for evaluation of abdominal wall. Needs EGD to evaluate for gastric problems or esophagitis. PAST MEDICAL HISTORY: Hyperlipidemia, TIA, gout, type 2 diabetes, reflux, COPD, coronary artery disease, hypertension. HOME MEDICATIONS: Pantoprazole, Lyrica, Ozempic, Januvia, Invokana, Symbicort, albuterol, lisinopril, vitamin D2, allopurinol, clopidogrel, isosorbide mononitrate, rosuvastatin, carvedilol, Cartia, and Vascepa. ALLERGIES: Latex. PAST SURGICAL HISTORY: Cholecystectomy, cardiac cath, coronary stent. SOCIAL HISTORY: No smoking or alcohol abuse. FAMILY HISTORY: Renal failure, heart disease, diabetes, dementia, asthma, and COPD REVIEW OF SYSTEMS: Twelve systems reviewed. No chest pain or palpitations. Other systems negative or noncontributory as above and per preadmission questionnaire. PHYSICAL EXAMINATION: GENERAL: Height 5 feet 7 inches, BMI 29.76. No acute distress. HEENT: Sclerae anicteric. NECK: No JVD. CARDIOVASCULAR: Regular rate and rhythm. CHEST: Equal excursion, nonlabored breathing. ABDOMEN: Soft. SKIN: Dry. EXTREMITIES: No cyanosis or edema. NEUROLOGIC: Alert and oriented, moving extremities symmetrically. PSYCHIATRIC: Appropriate mood and affect. IMPRESSION: Epigastric pain, increased reflux, in need of EGD with possible biopsy, evaluate for gastric problems and esophagitis. Risks were explained in detail including but not limited to bleeding or infection, risk of bowel injury or perforation, risk of missed or nondiagnosis or incomplete exam, risk of sedation or anesthesia, risk of bowel prep but not limited to. Otherwise, continue medications for heart disease, COPD, diabetes, hypertension, gout, lipids and reflux. Patient also has a history of a CT scan to be ordered.
[2023-10-17] MEDS: Lactated Ringers 1,000 ML IV SCH (12:45)
[2023-10-17 13:17] VITALS: RESP 18
[2023-10-17 13:36] LABS: ALBUMIN 4.5 g/dL (3.5-5.0); ANION GAP 11.4 MEQ/L (5-15); BILIRUBIN,TOTAL 1.7 mg/dL (0.2-1.3); Calcium 9.7 mg/dL (8.4-10.2); Creatinine 1 1.13 mg/dL (0.66-1.25); Potassium 4.1 mmol/L (3.5-5.1); Total Protein 7.4 g/dL (6.3-8.2)
[2023-10-17] MEDS ORDERED: Xylocaine-Mpf 2% 5 Ml Vial ONE (14:14)
[2023-10-17] MEDS ORDERED: DIPRIVAN 200 MG/20 ML IV ONE (14:14)
[2023-10-17 15:07] VITALS: BP 95/59; PULSE 57; TEMP 97.3; O2SAT 97
--- NOTE | 2023-10-18 11:07 | OP ---
SURGERY DATE/TIME: 10/17/2023 3174 - [id number] PREOPERATIVE DIAGNOSIS: Severe epigastric pain and reflux, need for upper endoscopy for further evaluation. POSTOPERATIVE DIAGNOSES: 1) ASA Class III. 2) Minimal amount of gastritis. 3) Short segment of distal erosive esophagitis. PROCEDURES: 1) Esophagogastroduodenoscopy. 2) Cold biopsy taken to evaluate for celiac or sprue. 3) Cold biopsy of antrum for evaluation of H pylori. 4) Cold biopsy of distal esophagus to evaluate for esophagitis. 5) Cold biopsy of mid esophagus to evaluate for eosinophilic esophagitis. SURGEON: Wili Timmons MD ANESTHESIA: MAC. ESTIMATED BLOOD LOSS: Minimal. CONSENT: Obtained. DESCRIPTION OF PROCEDURE AND FINDINGS: The patient was taken to the endoscopy room. MAC anesthesia induced. After official time out and no disagreement with planned procedure, bite block positioned. Videogastroscope easily passed down the esophagus through the patent pylorus to the junction of the third and fourth portion of duodenum. Duodenum was grossly unremarkable. Cold biopsy taken to rule out other causes of his epigastric pain. Good hemostasis noted. Scope pulled back into the stomach. He had some gastric erythema and some minimal mild gastritis. Cold biopsy taken to evaluate for H pylori. Good hemostasis noted. On retroflex, the GE junction snug against the scope. No signs of any large hiatal hernia. Scope was straightened. There were no signs of any ulcers, just mild gastric erythema, early gastritis. Scope pulled back to GE junction. About 38 cm, there was short segment of a little bit of distal esophagitis. Part of the Z line looked great. There was a couple of real thin erosions that looked a little bit chronic in nature. Short segment distal erosive esophagitis. Cold biopsy taken in this area for pathology. Good hemostasis noted. Otherwise, the scope was pulled back up to mid esophagus. Mucosa was fairly unremarkable appearing here but random cold biopsy taken to evaluate for eosinophilic esophagitis. Good hemostasis noted. Scope was withdrawn. Findings discussed with his over the phone.
== END 2023-10-17 15:10 | disposition home or self-care (01) ==
LOC: SDC 12:31
PROVIDERS: ATTEND Surgery
DX: K29.70 Gastritis, unspecified, without bleeding (principal); R10.13 Epigastric pain; K21.9 Gastro-esophageal reflux disease without esophagitis; I10 Essential (primary) hypertension; E11.9 Type 2 diabetes mellitus without complications; K22.10 Ulcer of esophagus without bleeding
CPT/HCPCS: 36415; 80053; 82947; 93005; J2704